=== PATIENT | female | born 1940 | race Caucasian/White ===

== ENCOUNTER 2023-08-29 09:24 | Emergency (ER) | payer MEDICARE, SELFPAY ==
[2023-08-29 09:26] VITALS: BP 172/78; PULSE 68; RESP 17; TEMP 36.4; O2SAT 98
--- NOTE | 2023-08-29 09:36 | CTR_ITS ---
PROCEDURE INFORMATION: Exam: CT Maxillofacial Without Contrast Exam date and time: 08/29/2023 10:10 AM Age: 82 years old Clinical indication: Injury or trauma; Fall; Blunt trauma (contusions or hematomas); Forehead TECHNIQUE: Imaging protocol: Computed tomography of the face without contrast. Radiation optimization: All CT scans at this facility use at least one of these dose optimization techniques: automated exposure control; mA and/or kV adjustment per patient size (includes targeted exams where dose is matched to clinical indication); or iterative reconstruction. COMPARISON: CT head wo con* [id number] 08/29/2023 10:10 AM RADIATION DOSE METRICS: Total DLP (mGy-cm): 598.1 FINDINGS: Orbital cavities: Orbits are normal. Globes are unremarkable. Paranasal sinuses: Normal. No air-fluid levels. Bones: No acute fracture. Severe bilateral TMJ degenerative changes. Soft tissues: Bifrontal scalp hematomas and scalp edema. CT/CT facial bones wo con* [id number] IMPRESSION: 1. Bifrontal scalp hematomas and scalp edema. 2. No acute fracture.
--- NOTE | 2023-08-29 09:36 | CTR_ITS ---
PROCEDURE INFORMATION: Exam: CT Cervical Spine Without Contrast Exam date and time: 08/29/2023 10:10 AM Age: 82 years old Clinical indication: Injury or trauma; Fall; Blunt trauma TECHNIQUE: Imaging protocol: Computed tomography of the cervical spine without contrast. Radiation optimization: All CT scans at this facility use at least one of these dose optimization techniques: automated exposure control; mA and/or kV adjustment per patient size (includes targeted exams where dose is matched to clinical indication); or iterative reconstruction. COMPARISON: CT facial bones wo con* [id number] 08/29/2023 10:10 AM RADIATION DOSE METRICS: Total DLP (mGy-cm): 293.1 FINDINGS: Bones: No acute fracture. Normal alignment. No significant disc bulge or herniation. No severe spinal canal stenosis. No significant neural foraminal narrowing. Diffuse [id number] spondylosis. There is marked disc space narrowing and endplate sclerosis with osteophytes at C5-C6. Mild degenerative retrolisthesis of C5 on C6. Chondrocalcinosis especially surrounding the dens. Scattered cervical disc calcifications. Lungs: Lung apices are normal. Esophagus: The upper esophagus is patulous. Soft tissues: Unremarkable. CT/CT cervical spin wo con* [id number] IMPRESSION: No acute findings.
--- NOTE | 2023-08-29 09:38 | CTR_ITS ---
PROCEDURE INFORMATION: Exam: CT Head Without Contrast Exam date and time: 08/29/2023 10:10 AM Age: 82 years old Clinical indication: Injury or trauma; Fall; Blunt trauma (contusions or hematomas); Consciousness not specified TECHNIQUE: Imaging protocol: Computed tomography of the head without contrast. Radiation optimization: All CT scans at this facility use at least one of these dose optimization techniques: automated exposure control; mA and/or kV adjustment per patient size (includes targeted exams where dose is matched to clinical indication); or iterative reconstruction. COMPARISON: CT facial bones wo con* [id number] 08/29/2023 10:10 AM RADIATION DOSE METRICS: Total DLP (mGy-cm): 1054.4 FINDINGS: Brain: There is volume loss and periventricular low density compatible with chronic small vessel disease changes. There is no acute intracranial hemorrhage, edema or mass effect. There are small bifrontal benign hygromas. Cerebral ventricles: No ventriculomegaly. Paranasal sinuses: Visualized sinuses are unremarkable. No fluid levels. Mastoid air cells: Visualized mastoid air cells are well aerated. Bones: Unremarkable. No acute fracture. Soft tissues: Bifrontal scalp hematoma and scalp edema. CT/CT head wo con* [id number] IMPRESSION: 1. No acute intracranial abnormality. 2. Bifrontal scalp hematoma and scalp edema.
--- NOTE | 2023-08-29 09:46 | ED_ITS ---
HPI - Fall 2 General: Chief Complaint: Head Injury Stated Complaint: FALL Time Seen by Provider: 08/29/23 09:36 Source: patient Mode of arrival: ambulatory History of Present Illness: 82-year-old female who presents to the e mergency room with complaints of a fall. She evidently fell this morning sounds like is a mechanical ground-level fall failure of that is with her reports that she has had 4 falls in the last few weeks. She is not on any anticoagulants. Patient is unsure if she lost consciousness. She denies chest pain shortness of breath or abdominal pain no dysuria urgency or frequency she did have some recurrent episodes of diarrhea in the past and had 1 episode this morning. Family member states 2 months ago when she was back in [place] they thought she had some bloody bowel movements she had been evaluated since then there is no definitive finding they have not had any bloody stools since then. MD complaint: fall Onset (ago): minute(s) Fall from: standing Place fall occurred: home Prolonged down time: no Context: tripped/slipped Associated symptoms-after fall: Denies abdominal pain, chest pain or neck pain Review of Systems 2 Const: Denies: fever(s) or chills Card: Denies: chest pain Resp: Denies: dyspnea GI: Denies: abdominal pain : Denies: dysuria, urinary frequency or urinary urgency Musc: Denies: neck pain or back pain Skin/Breast: Denies: rash PFSH ED 2 PFSH: Medical History (Updated 08/29/23 @ 13:15 by Vin Nagy DO) Anxiety and depression GERD without esophagitis Alzheimer's dementia Mixed dyslipidemia Essential hypertension Physical Exam 2 Const: GENERAL APPEARANCE: cooperative and comfortable O RIENTATION/CONSCIOUSNESS: Yes awake HENMT: COMMON NORMALS: normocephalic and hearing grossly normal bilaterally HEAD & SCALP: normocephalic OTHER: No abrasions or lacerations of the forehead but there is a very large amount of ecchymosis hematoma with some settling of blood already to the upper eyelid on the left. Swelling in the forehead none around the eyes itself there is no obvious deformities. Eye: COMMON NORMALS: Equal, round and reactive pupils present, EOMs intact bilaterally, conjunctivae normal, no scleral icterus and normal visual wren by confrontation CONJUNCTIVA: Yes conjunctivae normal PUPIL: Yes Equal, round and reactive pupils present Resp: COMMON NORMALS: normal respiratory effort, No retractions, No use of accessory muscles and clear to auscultation bilaterally AUSCULTATION: clear to auscultation bilaterally Cardio: COMMON NORMALS: regular rate, regular rhythm and No murmurs present (Cardio) RATE: regular rate RHYTHM: regular rhythm GI: COMMON NORMALS: Soft to palpation and No hepatosplenomegaly present A USCULTATION: Yes normoactive bowel sounds PALPATION: Yes Soft to palpation, No Tenderness to palpation present (GI), No Guarding due to palpation present (GI) and Yes No hepatosplenomegaly present Extremity: COMMON NORMALS: normal to inspection, capillary refill normal, no clubbing, cyanosis or edema, no calf tenderness and no pedal edema Skin: COMMON NORMALS: no rashes or lesions noted GENERAL SKIN EXAM: no rashes or lesions noted Course 2 Vital Signs: Vital signs: Vital Signs Temperature 97.6 F 08/29/23 13:36 Pulse Rate 68 08/29/23 13:36 Respiratory Rate 17 08/29/23 13:36 Blood Pressure 142/59 08/29/23 13:36 Pulse Oximetry 96 08/29/23 13:36 Oxygen Delivery Me thod Room Air 08/29/23 12:58 MDM - Fall Medical Decision Making CT does not show any acute injuries patient is awake and alert mildly confused she has a large amount of frontal hematoma she already had some the hematoma and ecchymosis traveling down with gravity to dependent areas there is increased swelling and ecchymosis on her eyelids from when she first arrived. Reviewed the findings with the family. Discussed with him anticipate significant more ecchymosis moving towards the eyes including a lot of swelling as well. She is a longstanding problem with gait and balance frequent falls continue to follow this up with her primary care doctor. No other injuries are noted we moved all of her extremities palpated her spine from lumbosacral junction to the base of the skull without complaints of pain is full range of motion of the neck without discomfort. Medical Records I reviewed the patient's medical records. Lab Data I reviewed the patient's lab results. 08/29/23 09:30 08/29/23 09:30 Radiology Impressions Cervical Spine CT 08/29/23 09:36 IMPRESSION: No acute findings. Face CT 08/29/23 09:36 IMPRESSION: 1. Bifrontal scalp hematomas and scalp edema. 2. No acute fracture. Head CT 08/29/23 09:38 IMPRESSION: 1. No acute intracranial abnormality. 2. Bifrontal scalp hematoma and scalp edema. Laboratory Results WBC 11.19 10^3/uL (3.29-11.43) 08/29/23 09:30 RBC 4.92 10^6/uL (3.85-5.65) 08/29/23 09:30 Hgb 13.70 g/dL (11.27-16.99) 08/29/23 09:30 Hct 43.7 % (36-47) 08/29/23 09:30 MCV 88.8 fl (85-98) 08/29/23 09:30 MCH 27.8 pg (27-33) 08/29/23 09:30 MCHC 31.4 g/dL (30-55) 08/29/23 09:30 RDW 14.6 % (12.1-15.1) 08/29/23 09:30 Plt Count 166 10^3/cmm (157-399) 08/29/23 09:30 MPV 11.1 fL (7.4-10.4) H 08/29/23 09:30 Neut % (Auto) 80.6 % 08/29/23 09:30 Lymph % (Auto) 8.8 % 08/29/23 09:30 Esmeralda % (Auto) 9.4 % 08/29/23 09:30 Eos % (Auto) 0.2 % 08/29/23 09:30 Baso % (Auto) 0.4 % 08/29/23 09:30 Neut # (Auto) 9.01 10^3/uL (1.8-7.7) H 08/29/23 09:30 Lymph # (Auto) 1.0 10^3/uL (0.8-4.8) 08/29/23 09:30 Esmeralda # (Auto) 1.1 10^3/uL (0.2-0.9) H 08/29/23 09:30 Eos # (Auto) 0.0 10^3/uL (0.0-0.8) 08/29/23 09:30 Baso # (Auto) 0.1 10^3/uL (0.0-0.1) 08/29/23 09:30 Nucleated RBC % (auto) 0 % 08/29/23 09:30 Nucleated RBCs # 0.0 /100WBC 08/29/23 09:30 Sodium 134 mmol/L (136-145) L 08/29/23 09:30 Potassium 4.1 mmol/L (3.5-5.1) 08/29/23 09:30 Chloride 97 mmol/L (98-107) L 08/29/23 09:30 Carbon Dioxide 25 mmol/L (22-29) 08/29/23 09:30 Anion Gap 16.1 (5-19) 08/29/23 09:30 BUN 13 mg/dL (8-23) 08/29/23 09:30 Creatinine 0.8 mg/dL (0.5-0.9) 08/29/23 09:30 GFR Calculation Not Reportable 08/29/23 09:30 Glucose 103 mg/dL (65-115) 08/29/23 09:30 Calculated Osmolality 278 mOsm/kg (285-295) L 08/29/23 09:30 Calcium 10.0 mg/dL (8.5-10.5) 08/29/23 09:30 Magnesium 1.8 mg/dL (1.7-2.3) 08/29/23 09:30 Total Bilirubin 1.2 mg/dL (0.15-1.2) 08/29/23 09:30 AST 15 U/L (0-32) 08/29/23 09:30 ALT 8 U/L (0-33) 08/29/23 09:30 Alkaline Phosphatase 83 U/L (35-105) 08/29/23 09:30 Total Protein 7.8 g/dL (6.6-8.7) 08/29/23 09:30 Albumin 4.4 g/dL (3.5-5.2) 08/29/23 09:30 Globulin 3.4 g/dL (1.3-4.6) 08/29/23 09:30 Urine Color Yellow (Yellow) 08/29/23 12:00 Urine Appearance Clear (CLEAR) 08/29/23 12:00 Urine pH 6 (5-7) 08/29/23 12:00 Ur Specific [place] 1.010 (1.005-1.030) 08/29/23 12:00 Urine Protein Neg (Negative) 08/29/23 12:00 Urine Glucose (UA) Norm (Normal) 08/29/23 12:00 Urine Ketones 1+ (Negative) H 08/29/23 12:00 Urine Blood 2+ (Negative) H 08/29/23 12:00 Urine Nitrate Negative (Negative) 08/29/23 12:00 Urine Bilirubin Neg (Negative) 08/29/23 12:00 Urine Urobilinogen Norm mg/dL (Negative) 08/29/23 12:00 Ur Leukocyte Esterase Negative (Negative) 08/29/23 12:00 Urine RBC 5-10 /hpf (0-2) H 08/29/23 12:00 Urine WBC Rare /hpf (0-5) 08/29/23 12:00 Ur Squamous Epith Cells 0-4 /hpf (0-5) H 08/29/23 12:00 Amorphous Sediment Not Reportable 08/29/23 12:00 Urine Bacteria Trace /hpf (NONE) 08/29/23 12:00 Urine Mucus Trace /hpf 08/29/23 12:00 All radiology interpretation(s) finalized by discharge Discharge Plan Discharge Patient Disposition: Home Clinical Impression: Hematoma of frontal scalp, Alzheimer's dementia, Fall Condition: Stable Prescriptions: No Action magnesium oxide 400 mg magnesium tablet 400 mg PO DAILY Discharge Orders: Discharge ED (Routine); Ordered 08/29/23 Ordered By: Vin Nagy Referrals: Ankur Smith DO [Primary Care Provider] - Discharge Diet: Usual diet Discharge Activity: Increase activity as tolerated Patient Instructions: Opioid Safety, Pain Management Activity Restrictions/Additional Instructions: Thank you for choosing [facility] for your healthcare needs today. It is very important that you follow up as instructed or that you return to the Emergency Department should you have concerns or if your condition changes or worsens in any way. You were seen today after a fall. CT of the head did not show any intracranial bleeding there is a large amount of contusion and hematoma in the scalp this will likely lead to a lot of swelling and will likely work its way down to around the eyes over the next day or 2. Ice can be helpful. Continue to work with your doctor to improve gait and stability Coding Level of Care Code ED Policy Writer [employer]ist for [employer]
[2023-08-29 09:58] LABS: Basophils # 0.1 10^3/uL (0.0-0.1); Basophils % 0.4 %; Eosinophils % 0.2 %; Hematocrit 43.7 % (36-47); Lymphocytes % 8.8 %; Mean Corpuscular HGB Conc 31.4 g/dL (30-55); Mean Corpuscular Hemoglobin 27.8 pg (27-33); Mean Corpuscular Volume 88.8 fl (85-98); Mean Platelet Volume 11.1 fL (7.4-10.4); Monocytes # 1.1 10^3/uL (0.2-0.9); Monocytes % 9.4 %; Neutrophils # 9.01 10^3/uL (1.8-7.7); Neutrophils % 80.6 %; Nucleated Red Blood Cells % 0 %; Platelet Count 166 10^3/cmm (157-399); Red Blood Count 4.92 10^6/uL (3.85-5.65); Red Cell Distribution Width 14.6 % (12.1-15.1); White Blood Count 11.19 10^3/uL (3.29-11.43)
[2023-08-29 09:59] VITALS: BP 172/78; PULSE 70; O2SAT 98
[2023-08-29 10:19] LABS: Alanine Aminotransferase 8 U/L (0-33); Albumin Level 4.4 g/dL (3.5-5.2); Alkaline Phosphatase 83 U/L (35-105); Anion Gap 16.1 (5-19); Aspartate Amino Transferase 15 U/L (0-32); Blood Urea Nitrogen 13 mg/dL (8-23); Carbon Dioxide 25 mmol/L (22-29); Chloride 97 mmol/L (98-107); Globulin 3.4 g/dL (1.3-4.6); Glucose 103 mg/dL (65-115); Magnesium 1.8 mg/dL (1.7-2.3); Osmolality Calculated 278 mOsm/kg (285-295); Potassium 4.1 mmol/L (3.5-5.1); Sodium 134 mmol/L (136-145); Total Bilirubin 1.2 mg/dL (0.15-1.2); Total Protein 7.8 g/dL (6.6-8.7)
[2023-08-29 10:48] VITALS: BP 172/78; PULSE 63; O2SAT 98
[2023-08-29 12:57] LABS: Add Urine Microscopic? YES; Bacteria Urine TRACE /hpf; Bilirubin Urine Neg (Negative); Blood Urine 2+ (Negative); Glucose Urine UA Norm (Normal); Ketones Urine 1+ (Negative); Leukocyte Esterase Urine Negative (Negative); Mucus Urine TRACE /hpf; Nitrate Urine Negative (Negative); Protein Urine Neg (Negative); Squamous Epithelial Cell Urine 0-4 /hpf (0-5); Urine Appearance Clear (CLEAR); Urine Color Yellow (Yellow); Urobilinogen Urine Norm (Negative); WBC Urine RARE /hpf (0-5); pH Urine 6 (5-7)
[2023-08-29 12:58] VITALS: BP 142/59; PULSE 68; O2SAT 96
[2023-08-29 12:58] LABS: Add Urine Culture? No
[2023-08-29 13:36] VITALS: BP 142/59; PULSE 68; RESP 17; TEMP 36.4; O2SAT 96
== END 2023-08-29 13:44 | disposition home or self-care (01) ==
PROVIDERS: Emergency Provider Family Medicine; PCP Family Medicine
DX: S00.03XA Contusion of scalp, initial encounter (principal); G30.9 Alzheimer's disease, unspecified; F02.80 Dementia in other diseases classified elsewhere, unspecified severity, without behavioral disturbance, psychotic disturbance, mood disturbance, and anxiety; W18.39XA Other fall on same level, initial encounter; E78.2 Mixed hyperlipidemia; I10 Essential (primary) hypertension
CPT/HCPCS: 70450; 70486; 72125; 80053; 81001; 83735; 85025; 99284

== ENCOUNTER 2023-11-29 15:26 | Outpatient (CLI) | payer MEDICARE, SELFPAY ==
[2023-11-29 16:08] LABS: Add Urine Microscopic? YES; Bilirubin Urine Neg (Negative); Blood Urine Neg (Negative); Glucose Urine UA Norm (Normal); Ketones Urine Negative (Negative); Leukocyte Esterase Urine Negative (Negative); Nitrate Urine Negative (Negative); Protein Urine Trace (Negative); Squamous Epithelial Cell Urine RARE /hpf (0-5); Urine Appearance Clear (CLEAR); Urine Color Yellow (Yellow); Urobilinogen Urine Norm (Negative); pH Urine 5 (5-7)
[2023-11-29 16:09] LABS: Add Urine Culture? No
== END 2023-11-29 15:27 | disposition home or self-care (01) ==
LOC: LAB 15:28
PROVIDERS: PCP Family Medicine; Visit Provider Family Medicine
DX: N39.0 Urinary tract infection, site not specified (principal)
CPT/HCPCS: 81001; 87086

== ENCOUNTER 2024-07-30 14:02 | Outpatient (CLI) | payer MEDICARE, SELFPAY ==
[2024-07-30 14:11] LABS: Basophils # 0.1 10^3/uL (0.0-0.1); Basophils % 0.6 %; Eosinophils # 0.1 10^3/uL (0.0-0.8); Eosinophils % 1.1 %; Hematocrit 46.1 % (36-47); Lymphocytes # 1.7 10^3/uL (0.8-4.8); Lymphocytes % 16.7 %; Mean Corpuscular HGB Conc 30.8 g/dL (30-55); Mean Corpuscular Hemoglobin 29.5 pg (27-33); Mean Corpuscular Volume 95.8 fl (85-98); Monocytes # 0.8 10^3/uL (0.2-0.9); Monocytes % 8.2 %; Neutrophils # 7.33 10^3/uL (1.8-7.7); Neutrophils % 73.1 %; Nucleated Red Blood Cells % 0 %; Platelet Count 150 10^3/cmm (157-399); Red Blood Count 4.81 10^6/uL (3.85-5.65); Red Cell Distribution Width 14.4 % (12.1-15.1); White Blood Count 10.02 10^3/uL (3.29-11.43)
[2024-07-30 14:44] LABS: Alanine Aminotransferase 10 U/L (0-33); Alkaline Phosphatase 69 U/L (35-105); Aspartate Amino Transferase 16 U/L (0-32); Blood Urea Nitrogen 20 mg/dL (8-23); Calcium 9.1 mg/dL (8.5-10.5); Carbon Dioxide 25 mmol/L (22-29); Chloride 102 mmol/L (98-107); Chol HDL Ratio 3.55 mg/dL (0.0-4.40); Cholesterol 188 mg/dL (0-200); Globulin 2.8 g/dL (1.3-4.6); Glucose 112 mg/dL (65-115); HDL Cholesterol 53 mg/dL (60-100); LDL Cholesterol Calculated 117 mg/dL (50-129); LDL HDL Ratio 2.21 RATIO (0.00-3.22); Osmolality Calculated 289 mOsm/kg (285-295); Sodium 138 mmol/L (136-145); Thyroid Stimulating Hormone 3.13 uIU/mL (0.27-4.20); Total Bilirubin 0.4 mg/dL (0.15-1.2); Total Protein 6.8 g/dL (6.6-8.7); Triglycerides 92 mg/dL (0-150)
== END 2024-07-30 14:03 | disposition home or self-care (01) ==
PROVIDERS: PCP Family Medicine; Visit Provider Family Medicine
DX: I10 Essential (primary) hypertension (principal)
CPT/HCPCS: 80053; 80061; 84443; 85025